=== PATIENT | male | born 1970 | race Two or more races ===

== ENCOUNTER → 2023-06-12 | Outpatient (CLI) | payer OTHER ==
[2023-06-12 20:59] LABS: HCT 44.7 % (39.6-50.0); HGB 14.6 d/dL (13.0-17.0); MCH 29.6 pg (27.0-32.0); MCHC 32.7 d/dL (32.0-37.0); MCV 90.5 FL (80.0-97.0); Mean Platelet Volume 11.6 FL (9.5-12.2); NRBC Per 100 WBC 0 X 10*3/uL (0.00-0.01); Platelet Count 230 X 10*3/uL (140-440); RBC 4.94 X 10*6/uL (4.40-5.60); RDW 12.1 % (11.5-14.5); WBC 3.94 X 10*3/uL (4.50-10.00)
[2023-06-12 21:00] LABS: Basophils # (A) 0.05 X 10*3/uL (0.00-0.10); Basophils % (A) 1.3 %; Eosinophils # (A) 0.34 X 10*3/uL (0.04-0.35); Eosinophils % (A) 8.6 %; Immature Grans, Automated 0 %; Lymphocytes # (A) 1.54 X 10*3/uL (0.90-5.00); Lymphocytes % (A) 39.1 %; Monocytes # (A) 0.45 X 10*3/uL (0.20-1.00); Monocytes % (A) 11.4 %; Neutrophils # (A) 1.56 X 10*3/uL (1.80-7.70); Neutrophils % (A) 39.6 %
[2023-06-12 21:07] LABS: % Iron Saturation 19.46 (15.00-50.00); ALT 37 U/L (10-49); AST 31 U/L (14-35); Albumin 4.9 d/dL (3.8-4.9); Albumin/Globulin Ratio 1.75 Ratio (1.60-3.17); Alkaline Phosphatase 83 U/L (41-126); BUN/Creat Ratio 16.33 Ratio (12.00-20.00); Blood Urea Nitrogen 14.7 mg/dL (9.0-27.0); Calcium 9.7 mg/dL (8.7-10.3); Carbon Dioxide 24.7 mmol/L (21.6-31.8); Chloride 104 mmol/L (96-109); Chol/HDL Ratio 4.51 Ratio; Creatine Kinase 740 U/L (35-257); Ferritin 43.4 ng/mL (22.0-322.0); Globulin 2.8 d/dL (1.6-3.3); Glucose 130 mg/dL (70-110); Iron 79 UG/DL (65-175); LDL Cholesterol,Calculated 184.1 mg/dL (0.0-131.0); Phosphorus 3.2 mg/dL (2.4-5.1); Potassium 4.8 mmol/L (3.5-5.5); Sodium 141 mmol/L (135-145); Total Bilirubin 0.8 mg/dL (0.3-1.2); Total Iron Binding Capacity 406 UG/DL (228-460); Total Protein 7.7 d/dL (6.2-8.2); Uric Acid 3.9 mg/dL (3.7-8.7); VLDL Calculation 12.78 mg/dL (5.00-40.00)
[2023-06-12 21:25] LABS: Appearance,Urine Clear (Clear); Bilirubin,Urine Negative (Negative); Blood,Urine Negative (Negative); Color,Urine Yellow (Yellow); Ketones,Urine Negative (Negative); Nitrite,Urine Negative (Negative); PH, Urine 5.5; Specific Gravity,Urine 1.024 (1.001-1.030); Urobilinogen,Urine 0.2 E.U./DL
[2023-06-12 21:59] LABS: Erythrocyte Sedimentation Rate 29 mm/Hr (0-20)
== END | disposition home or self-care (01) ==
LOC: LABWHC1 15:06
PROVIDERS: ATTEND Internal Medicine
DX: Z00.00 Encounter for general adult medical examination without abnormal findings (principal); E78.5 Hyperlipidemia, unspecified; E11.65 Type 2 diabetes mellitus with hyperglycemia; E87.8 Other disorders of electrolyte and fluid balance, not elsewhere classified; N39.0 Urinary tract infection, site not specified; E03.9 Hypothyroidism, unspecified; N20.0 Calculus of kidney; E55.9 Vitamin D deficiency, unspecified; R06.02 Shortness of breath
CPT/HCPCS: 36415; 80053; 80061; 81003; 82040; 82043; 82306; 82550; 82570; 82728; 83036; 83540; 83550; 83735; 84100; 84153; 84270; 84403; 84443; 84550; 85025; 85652; 86140

== ENCOUNTER → 2023-06-12 | Outpatient (CLI) | payer OTHER ==
--- NOTE | 2023-06-12 17:44 | XR ---
EXAMINATION TYPE: XR chest 2V DATE OF EXAM: 06/12/2023 COMPARISON: None HISTORY: 52-year-old male shortness of breath TECHNIQUE: Frontal and lateral views FINDINGS: Heart normal size. Aorta within normal limits. Mild increased interstitial density. More patchy densi ty at the left base. No pleural effusion. IMPRESSION: Mild increased interstitial density could reflect bronchitis or asthma. However, there is more focal patchy atelectasis versus early infiltrate at the left base.
== END | disposition home or self-care (01) ==
LOC: RADXRMAIN 14:47
PROVIDERS: ATTEND Internal Medicine
DX: J98.4 Other disorders of lung (principal); E55.9 Vitamin D deficiency, unspecified; R06.02 Shortness of breath
CPT/HCPCS: 71046

== ENCOUNTER 2023-10-13 21:49 | Emergency (ER) | payer OTHER ==
[2023-10-13 22:23] VITALS: BP 147/85; PULSE 101; RESP 18; TEMP 98.6
--- NOTE | 2023-10-13 23:29 | ED ---
General Adult HPI - General Chief complaint: Skin/Abscess/Foreign Body Stated complaint: Rash on arms Time Seen by Provider: 10/13/23 22:40 Source: patient Mode of arrival: ambulatory Limitations: language barrier - History of Present Illness Initial comments: 52-year-old male presenting to the ED with a chief complaint of rash. He obtained from the patient's son the patient speaks Indonesian. Patient reports that he has had a rash on his right forearm for the past month. However recently over the past few weeks states as she has been itching this rash has now spread to his left forearm. Rash is itchy. Denies fever. No chest pain shortness of breath. No other complaints. - Related Data Previous Rx's Medication Instructions Recorded Clotrimazole/Betameth Cream 1 applic TOPICAL BID #45 gm 10/13/23 [Lotrisone] Allergies Allergy/AdvReac Type Severity Reaction Status Date / Time No Known Allergies Allergy Verified 10/13/23 21:59 Review of Systems ROS Statement: Those systems with pertinent positive or pertinent negative responses have been documented in the HPI. ROS Other: All systems not noted in ROS Statement are negative. Past Medical History Past Medical History: No Reported History History of Any Multi-Drug Resistant Organisms: None Reported Additional Past Surgical History / Comment(s): Groin Past Psychological History: No Psychological Hx Reported Smoking Status: Never smoker Past Alcohol Use History: None Reported Past Drug Use History: None Reported General Exam Limitations: language barrier General appearance: alert, in no apparent distress ENT exam: Present: normal exam Neck exam: Present: normal inspection Respiratory exam: Present: normal lung sounds bilaterally Cardiovascular Exam: Present: regular rate, normal rhythm GI/Abdominal exam: Present: soft Neurological exam: Present: alert, oriented X3 Skin exam: Present: other (Macular rash of bilateral forearms. No Overlying warmth, erythema, tenderness to palpation.) Course Vital Signs 10/13/23 21:56 Temperature 98.6 F Pulse Rate 101 H Respiratory 18 Rate Blood Pressure 147/85 O2 Sat by Pulse 97 Oximetry Medical Decision Making - Medical Decision Making Was pt. sent in by a medical professional or institution (MADALYN Shelley, FORK REPAIRER, urgent care, hospital, or long-term...) When possible be specific @ -No Did you speak to anyone other than the patient for history (EMS, parent, family, police, friend...)? What history was obtained from this source @ -Spoke to the son who translated history provided by the patient. Did you review nursing and triage notes (agree or disagree)? Why? @ -I reviewed and agree with nursing and triage notes Were old charts reviewed (outside hosp., previous admission, EMS record, old EKG, old radiological studies, urgent care reports/EKG's, long-term records)? Report findings @ -No old charts were reviewed Differential Diagnosis (chest pain, altered mental status, abdominal pain women, abdominal pain men, vaginal bleeding, weakness, fever, dyspnea, syncope, headache, dizziness, GI bleed, back pain, seizure, CVA, palpatations, mental health, musculoskeletal)? @ -SJS, TEN, dermatitis. This is not meant to be an all-inclusive list. EKG interpreted by me (3pts min.). @ -As above X-rays interpreted by me (1pt min.). @ -None done CT interpreted by me (1pt min.). @ -None done U/S interpreted by me (1pt. min.). @ -None done What testing was considered but not performed or refused? (CT, X-rays, U/S, labs)? Why? @ -None What meds were considered but not given or refused? Why? @ -None Did you discuss the management of the patient with other professionals (professionals i.e. , PA, FORK REPAIRER, lab, RT, psych nurse, social service technician, continuous miner operator, teacher, loan review officer, onsite case manager)? Give summary @ -No Was smoking cessation discussed for >3mins.? @ -No Was critical care preformed (if so, how long)? @ -No Were there social determinants of health that impacted care today? How? (Homel essness, low income, unemployed, alcoholism, drug addiction, transportation, low edu. Level, literacy, decrease access to med. care, retirement, rehab)? @ -No Was there de-escalation of care discussed even if they declined (Discuss DNR or withdrawal of care, Hospice)? DNR status @ -No What co-morbidities impacted this encounter? (DM, HTN, Smoking, COPD, CAD, Cancer, CVA, ARF, Chemo, Hep., AIDS, mental health diagnosis, sleep apnea, morbid obesity)? @ -None Was patient admitted / discharged? Hospital course, mention meds given and route, prescriptions, significant lab abnormalities, going to OR and other pertinent info. @ -Discharge 52-year-old male presenting to the ED with chief complaint of rash to his right arm now spread to his left arm. On exam rash appears to be consistent with fungal rash. Provided prescription for betamethasone clotrimazole cream and advised to follow up with primary care. Patient also covered for infection. Provided prescription for Keflex. Discharged home in stable condition. Discussed return precautions with the patient's son who verbalizes agreement. Undiagnosed new problem with uncertain prognosis? @ -No Drug Therapy requiring intensive monitoring for toxicity (Heparin, Nitro, Insulin, Cardizem)? @ -No Were any procedures done? @ -No Diagnosis/symptom? @ -Rash Acute, or Chronic, or Acute on Chronic? @ -Acute Uncomplicated (without systemic symptoms) or Complicated (systemic symptoms)? @ -Uncomplicated Side effects of treatment? @ -No Exacerbation, Progression, or Severe Exacerbation? @ -No Poses a threat to life or bodily function? How? (Chest pain, [place], [place], pneumonia, PE, COPD, DKA, ARF, appy, cholecystitis, CVA, Diverticulitis, Homicidal, Suicidal, threat to staff... and all critical care pts) @ -No Disposition Clinical Impression: Rash Disposition: HOME SELF-CARE Instructions (If sedation given, give patient instructions): Tinea Corporis (ED) Additional Instructions: Please return to the Emergency Department if symptoms worsen or any other concerns. Please follow up with your primary care provider. Prescriptions: Clotrimazole/Betameth Cream [Lotrisone] 1 applic TOPICAL BID #45 gm Is patient prescribed a controlled substance at d/c from ED?: No Referrals: Nonstaff,Physician [Primary Care Provider] - 1-2 days Time of Disposition: 23:34
== END 2023-10-13 23:45 | disposition home or self-care (01) ==
LOC: EC 21:49
DX: R21 Rash and other nonspecific skin eruption (principal)
CPT/HCPCS: 99282

== ENCOUNTER 2024-08-15 20:50 | Emergency (ER) | payer OTHER ==
[2024-08-15 21:00] VITALS: RESP 18
--- NOTE | 2024-08-15 21:29 | ED ---
ENT HPI - General Chief complaint: ENT Stated complaint: Left earache Time Seen by Provider: 08/15/24 21:02 Source: patient Mode of arrival: ambulatory Limitations: no limitations - History of Present Illness Initial comments: 53-year-old male presenting with chief complaint of left-sided ear pain. There is a language barrier and the patient's son is serving as phlebotomy program coordinator. Patient has had pain and loss of hearing in the left ear for 2 days. No discharge or bleeding. Denies any injury or trauma. States that he cleans his ears after every shower with Q-tips. No pain or swelling behind the ears. No fever. No right ear pain. - Related Data Previous Rx's Medication Instructions Recorded Cephalexin [Keflex] 500 mg PO Q6HR 5 Days #20 cap 10/13/23 Clotrimazole/Betameth Cream 1 applic TOPICAL BID #45 gm 10/13/23 [Lotrisone] Amoxicillin 500 mg PO Q12HR 7 Days #14 cap 08/15/24 Allergies Allergy/AdvReac Type Severity Reaction Status Date / Time No Known Allergies Allergy Verified 10/13/23 21:59 Review of Systems ROS Statement: Those systems with pertinent positive or pertinent negative responses have been documented in the HPI. ROS Other: All systems not noted in ROS Statement are negative. Past Medical History Past Medical History: No Reported History History of Any Multi-Drug Resistant Organisms: None Reported Additional Past Surgical History / Comment(s): Groin Past Psychological History: No Psychological Hx Reported Smoking Status: Never smoker Past Alcohol Use History: None Reported Past Drug Use History: None Reported General Exam Limitations: language barrier General appearance: alert, in no apparent distress Head exam: Present: atraumatic, normocephalic Eye exam: Present: normal appearance, EOMI Expanded TM/Canal exam: Perforation: Left TM Mouth exam: Present: normal external inspection Neck exam: Present: normal inspection. Absent: meningismus Respiratory exam: Absent: respiratory distress Cardiovascular Exam: Present: regular rate Neurological exam: Present: alert, oriented X3 Psychiatric exam: Present: normal affect, normal mood Skin exam: Present: warm, dry Course Vital Signs 08/15/24 20:58 Temperature 98.9 F Pulse Rate 85 Respiratory 18 Rate Blood Pressure 146/81 O2 Sat by Pulse 98 Oximetry Medical Decision Making - Medical Decision Making Was pt. sent in by a medical professional or institution (Dr., PA, DENTAL OFFICE COORDINATOR, urgent care, hospital, or custodial...) When possible be specific @ -No Did you speak to anyone other than the patient for history (EMS, parent, family, police, friend...)? What history was obtained from this source @ -No Did you review nursing and triage notes (agree or disagree)? Why? @ -I reviewed and agree with nursing and triage notes Were old charts reviewed (outside hosp., previous admission, EMS record, old EKG, old radiological studies, urgent care reports/EKG's, custodial records)? Report findings @ -No old charts were reviewed Differential Diagnosis (chest pain, altered mental status, abdominal pain women, abdominal pain men, vaginal bleeding, weakness, fever, dyspnea, syncope, headache, dizziness, GI bleed, back pain, seizure, CVA, palpatations, mental health, musculoskeletal)? @ -Differential includes otitis media, otitis externa, mastoiditis, tympanic membrane rupture, foreign body, this is not an all-inclusive list EKG interpreted by me (3pts min.). @ -As above X-rays interpreted by me (1pt min.). @ -None done CT interpreted by me (1pt min.). @ -None done U/S interpreted by me (1pt. min.). @ -None done What testing was considered but not performed or refused? (CT, X-rays, U/S, labs)? Why? @ -None What meds were considered but not given or refused? Why? @ -None Did you discuss the management of the patient with other professionals (professionals i.e. MADALYN Shelley, DENTAL OFFICE COORDINATOR, lab, RT, psych nurse, social services assistant, delphi programmer, teacher, special technical operations officer, geriatric case manager)? Give summary @ -No Was smoking cessation discussed for >3mins.? @ -No Was critical care preformed (if so, how long)? @ -No Were there social determinants of health that impacted care today? How? (Homelessness, low income, unemployed, alcoholism, drug addiction, transportation, low edu. Level, literacy, decrease access to med. care, skilled nursing, rehab)? @ -No Was there de-escalation of care discussed even if they declined (Discuss DNR or withdrawal of care, Hospice)? DNR status @ -No What co-morbidities impacted this encounter? (DM, HTN, Smoking, COPD, CAD, Cancer, CVA, ARF, Chemo, Hep., AIDS, mental health diagnosis, sleep apnea, morbid obesity)? @ -None Was patient admitted / discharged? Hospital course, mention meds given and route, prescriptions, significant lab abnormalities, going to OR and other pertinent info. @ -53-year-old male presenting with chief complaint of pain and loss of hearing in the left ear for 2 days. On exam there is no evidence of tympanic membrane rupture. Patient states that he does frequently use Q-tips. Patient may have punctured his eardrum with a Q-tip. Patient and his son who is serving as phlebotomy program coordinator are educated on today's findings. Started on antibiotics to prevent infection and instructed to follow-up with ENT. Discharged. Follow-up with PCP. Report back to ER with any new or worsening symptoms. Discussed return parameters and answered all questions. Patient conveyed verbal understanding and agreed to the plan. I discussed this case in detail with my attending Dr. Jordan Undiagnosed new problem with uncertain prognosis? @ -No Drug Therapy requiring intensive monitoring for toxicity (Heparin, Nitro, Insulin, Cardizem)? @ -No Were any procedures done? @ -No Diagnosis/symptom? @ -Tympanic membrane rupture Acute, or Chronic, or Acute on Chronic? @ -Acute Uncomplicated (without systemic symptoms) or Complicated (systemic symptoms)? @ -Uncomplicated Side effects of treatment? @ -No Exacerbation, Progression, or Severe Exacerbation? @ -No Poses a threat to life or bodily function? How? (Chest pain, [place], [place], pneumonia, PE, COPD, DKA, ARF, appy, cholecystitis, CVA, Diverticulitis, Homicidal, Suicidal, threat to staff... and all critical care pts) @ -Unlikely Disposition Clinical Impression: Tympanic membrane rupture Disposition: HOME SELF-CARE Condition: Good Instructions (If sedation given, give patient instructions): Ruptured Eardrum (ED) Additional Instructions: Follow-up with ENT. Report back to ER with any new or worsening symptoms. Not insert Q-tips or anything else into your ears Prescriptions: Amoxicillin 500 mg PO Q12HR 7 Days #14 cap Is patient prescribed a controlled substance at d/c from ED?: No Referrals: None,Stated [Primary Care Provider] - 1-2 days Andrew Muniz MD [STAFF PHYSICIAN] - 1-2 days Time of Disposition: 21:29
[2024-08-15 21:43] VITALS: BP 140/83; PULSE 80; TEMP 98.7
== END 2024-08-15 21:41 | disposition home or self-care (01) ==
LOC: EC 20:50
DX: H72.92 Unspecified perforation of tympanic membrane, left ear (principal)
CPT/HCPCS: 99282